=== PATIENT | male | born 1990 | race Caucasian/White ===

== ENCOUNTER 2022-01-08 12:11 | Outpatient (CLI) | payer MEDICAID | END 2022-01-08 12:12 | disposition critical access hospital (66) | LOC: EMS 12:11 | DX: R41.82 Altered mental status, unspecified (principal); R46.4 Slowness and poor responsiveness; R26.2 Difficulty in walking, not elsewhere classified | CPT/HCPCS: A0425; A0429; A0999 ==

== ENCOUNTER 2022-01-08 12:32 | Emergency (ER) | payer MEDICAID ==
[2022-01-08] MEDS ORDERED: NALOXONE HCL NASAL SPRAY KIT NAS STA (12:39)
[2022-01-08] MEDS ORDERED: NALOXONE 0.4 MG/ML VIAL IVP STA (12:39)
[2022-01-08 12:42] VITALS: BP 143/91
[2022-01-08] MEDS ORDERED: SODIUM CHLORIDE 0.9% 1,000 ML IV STA (12:43)
--- NOTE | 2022-01-08 12:44 | ED Physician Documentation ---
History of Present Illness - Stated complaint Stated Complaint: ALOC - Additonal information Additional information: 31-year-old male is brought to the emergency department via EMS for evaluation of altered mental status and somnolence. He was walking towards the [facility] in [place]. Staff there noted that he was having difficulty walking. He would often pause to sleep. Because of the altered mental status and significant somnolence EMS was summoned. For EMS he was cooperative but confused. He admitted to methamphetamine use last night. On arrival to the emergency department here patient is awake, he is able to correctly state his name and date of only. He cannot answer location or history questions. He has no obvious focal deficits though his left eye prefers to remain closed. Pupils 3 mm bilaterally; briskly reactive. Unknown history of trauma. He was normotensive and without tachycardia for EMS. His blood glucose was normal. Due to altered mentation review of systems is unable to be obtained history as per EMS Review of Systems Unable to obtain: AMS PD PAST MEDICAL HISTORY - Allergies Allergies/Adverse Reactions: Allergies Allergy/AdvReac Type Severity Reaction Status Date / Time Unable to Assess Allergy Verified 01/08/22 12:38 PD ED PE EXPANDED - General General: Disheveled, poorly kept (Very poor hygiene, clothing is soiled and wet; no obvious trauma otherwise), Lethargic - HEENT HEENT: PERRL, Other (No obvious trauma. EOMIs appear intact though he will not follow on command. The left eye prefers to stay shut. The patient can open it) - Eyes Eyes: PERRL, Left eye (stays closed) - Neck Neck: Supple w/out meningeal sx, No tenderness - Cardiac Cardiac: Regular Rate, Radial strong equal, Pedal strong equal, Cap refill < 2 sec. No: Murmur Present - Respiratory Respiratory: Clear to ausultation chantelle. No: Distress, Labored - Abdomen Abdomen: Normal Bowel sounds. No: Tender to palpation - Derm Derm: Normal color, Warm and dry - Extremities Extremities: Normal. No: Deformity, Tenderness - Neuro Neuro: Confused, Disoriented, Lethargic, CNII-XII intact, Other (Patient will follow commands bilateral upper extremities differentiates between 2 and 3 fingers. Easily gets the thumb up though weak motor movements) - GCS Eye Opening: Spontaneous Motor: Obeys Commands Verbal: Inappropriate Total: 13 Results - Vitals Vitals: Vital Signs - 24 hr 01/08/22 01/08/22 12:38 12:42 Temperature 36.6 C 36.6 C Heart Rate 76 76 Respiratory 14 14 Rate Blood Pressure 143/91 H 143/91 H O2 Saturation 97 97 Oxygen O2 Source Room air - Labs Labs: Laboratory Tests 01/08/22 01/08/22 01/08/22 13:15 13:15 13:41 WBC 14.8 H RBC 6.12 H Hgb 18.4 H Hct 55.7 H MCV 91.0 MCH 30.1 MCHC 33.0 RDW 13.3 Plt Count 366 MPV 9.7 Neut # (Auto) 12.6 H Lymph # (Auto) 0.8 L [place] # (Auto) 1.3 H Eos # (Auto) 0.0 Baso # (Auto) 0.1 Absolute Nucleated RBC 0.00 Nucleated RBC % 0.0 INR (Fingerstick) 1.1 Sodium 145 Potassium 4.5 Chloride 100 L Carbon Dioxide 30 Anion Gap 15.0 H BUN 38 H Creatinine 1.2 Estimated GFR (MDRD) 71 L Glucose 115 H Calcium 10.2 Total Bilirubin 1.8 H AST 28 ALT 55 Alkaline Phosphatase 85 Total Protein 9.4 H Albumin 4.6 Globulin 4.8 H Albumin/Globulin Ratio 1.0 Lipase 45 Ethyl Alcohol < 5.0 - Rads (name of study) CT head Radiology: Final report received (Very large hematoma or contusion involving the anterior frontal lobes bilaterally with some subarachnoid hemorrhage and probable minimal intraventricular hemorrhage. Also hemorrhage in the rostrum of the corpus callosum with blood layering along the posterior aspect of the falx) PD MEDICAL DECISION MAKING - ED course Complexity details: reviewed results, re-evaluated patient, considered differential, d/w patient, d/w senior research consultant ([facility], [place] ED attending [facility]) ED course: 31-year-old male was brought to the emergency department via EMS for evaluation of altered mental status. Reportedly was walking towards a local homeless group home when he was found to have difficulty walking and increased somnolence. He was normotensive for EMS. No hypoglycemia. He appears homeless disheveled and with poor hygiene but no other external signs of trauma. He had admitted to methamphetamine use. On arrival to the emergency department he is able to follow commands but is acutely confused with some inappropriate words oriented to person only. He prefers to keep his left eyes shut but pupils are briskly reactive bilaterally his eye movements appear intact. He does follow commands bilateral upper extremities. Subsequent CT imaging revealed bilateral intraparenchymal hemorrhages with's small associated intraventricular hemorrhage. This patient was initially given a dose of Narcan on presentation for the somnolence though it has not affected his mentation. 13[address] given the findings on CT scan we have pushed imaging to [facility] and initiated the process for emergent transfer. 1345: At this time screening labs are most significant for leukocytosis. He also appears moderately dehydrated with an elevated BUN and mildly elevated creatinine. He is however normotensive with a systolic blood pressure of 141. Heart rate is in the 70s. I have instituted 1 L of IV fluids. 1350: I have spoken with Dr. Cherry ED attending at [facility] who agrees to accept the patient in transfer. COVID screen is pending. Patient will be flown via [facility]. Recommendation is to keep his systolic blood pressure under 140 with either labetalol or nicardipine. Appropriate [employer] paperwork has been completed. Departure - Departure Disposition: 02 Transfer Acute Care Hosp Clinical Impression: Intraparenchymal hemorrhage of brain Altered mental status Qualifiers: Altered mental status type: coma Coma depth: Yareli coma 13-15 Coma timing: in the field (EMT or ambulance) Qualified Code(s): R40.2411 - Yareli coma scale score 13-15, in the field [EMT or ambulance] Condition: Serious
[2022-01-08 13:19] LABS: BASOPHILS # (AUTO) 0.1 10^3/uL (0.0-0.1); BASOPHILS % (AUTO) 0.5 %; HCT - HEMATOCRIT 55.7 % (42.0-52.0); HGB - HEMOGLOBIN 18.4 g/dL (14.0-18.0); LYMPHOCYTES # (AUTO) 0.8 10^3/uL (1.5-3.5); LYMPHOCYTES % (AUTO) 5.1 %; MEAN CORPUSCULAR HEMOGLOBIN 30.1 pg (27.0-31.0); MEAN PLATELET VOLUME 9.7 fL (7.4-11.4); MONOCYTES # (AUTO) 1.3 10^3/uL (0.0-1.0); MONOCYTES % (AUTO) 8.6 %; NEUTROPHILS # (AUTO) 12.6 10^3/uL (1.5-6.6); NEUTROPHILS % (AUTO) 85.4 %; PLT - PLATELET COUNT 366 10^3/uL (130-450); RED BLOOD COUNT 6.12 10^6/uL (4.70-6.10); RED CELL DISTRIBUTION WIDTH 13.3 % (12.0-15.0); WHITE BLOOD COUNT 14.8 x10^3/uL (4.8-10.8)
[2022-01-08 13:32] LABS: ALBUMIN 4.6 g/dL (3.2-5.5); ALKALINE PHOSPHATASE 85 IU/L (42-121); ALT ALANINE AMINOTRANSFERASE 55 IU/L (10-60); AST ASPARTATE AMINOTRANSFERASE 28 IU/L (10-42); BILIRUBIN,TOTAL 1.8 mg/dL (0.2-1.0); BUN - BLOOD UREA NITROGEN 38 mg/dL (6-20); CALCIUM 10.2 mg/dL (8.5-10.3); CARBON DIOXIDE - CO2 30 mmol/L (21-32); CHLORIDE 100 mmol/L (101-111); CREATININE 1.2 mg/dL (0.6-1.2); ETOH - ETHANOL < 5.0 mg/dL; GFR - MDRD 71 (>89); GLUCOSE 115 mg/dL (70-100); LIPASE 45 U/L (22-51); POTASSIUM 4.5 mmol/L (3.5-5.0); SODIUM 145 mmol/L (135-145); TOTAL PROTEIN 9.4 g/dL (6.7-8.2)
--- NOTE | 2022-01-08 13:39 | CT Report ---
PROCEDURE: HEAD WO INDICATIONS: somnolence; meth use TECHNIQUE: Noncontrast 4.5 mm thick angled axial sections acquired from the foramen magnum to the vertex. For r adiation dose reduction, the following was used: automated exposure control, adjustment of mA and/or kV according to patient size. COMPARISON: None. FINDINGS: Image quality: Excellent. CSF spaces: There is a small amount of hemorrhage which extends from the bilateral frontal regions to probably extend anteriorly into the ventricular system. There is also a small amount of subarachnoid hemorrhage. There is blood layering along the posterior aspect of the falx to the right of midline. Brain: Very large bilateral frontal cerebral contusion/hematoma, with overall measurements of approxi mately 5.1 x 6.7 x 5.2 cm. This represents a combination of hemorrhagic and nonhemorrhagic contusion/ hematoma. There appears to be hemorrhage involving the rostrum of the corpus callosum. Skull and face: Calvarium and visualized facial bones are intact, without suspicious lesions. Sinuses: Visualized sinuses and mastoids are clear. IMPRESSION: Very large hematoma or contusion involving the anterior frontal lobes bilaterally with s ome subarachnoid hemorrhage and probable minimal intraventricular hemorrhage. There is also hemorrhag e involving the rostrum of the corpus callosum as well as blood layering along the posterior aspect o f the falx. Above discussed with Jackie Matthews at the time of dictation on 01/08/2022 at 1333 hours. Reviewed by: Reinier Lima MD on 01/08/2022 1:37 PM PDT Approved by: Reinier Lima MD on 01/08/2022 1:37 PM PDT Station ID: [id number]
[2022-01-08 13:59] LABS: MUDS CUTOFF CONCENTRATIONS CUTOFF CONC BELOW:
[2022-01-08] MEDS ORDERED: LABETALOL VIAL 200 MG in SODIUM CHLORIDE 0.9% 160 ML IV STA (14:07)
[2022-01-08 14:22] LABS: AMPHETAMINE SCREEN,URINE POSITIVE (NEGATIVE); BARBITURATE SCREEN,UR NEGATIVE (NEGATIVE); BENZODIAZEPINES SCREEN, URINE NEGATIVE (NEGATIVE); COCAINE SCREEN URINE NEGATIVE (NEGATIVE); METHADONE SCREEN, URINE NEGATIVE (NEGATIVE); METHAMPHETAMINES SCREEN, URINE POSITIVE (NEGATIVE); OPIATE SCREEN, URINE NEGATIVE (NEGATIVE); OXYCODONE SCREEN, URINE NEGATIVE (NEGATIVE); PROPOXYPHENE SCREEN, URINE NEGATIVE (NEGATIVE); THC CANNABINOID SCREEN, URINE NEGATIVE (NEGATIVE); TRICYCLIC ANTIDEPRESSANT,URINE NEGATIVE (NEGATIVE)
== END 2022-01-08 14:27 | disposition short-term general hospital (02) ==
LOC: ED 12:32
DX: I61.9 Nontraumatic intracerebral hemorrhage, unspecified (principal); R40.2411 Glasgow coma scale score 13-15, in the field [EMT or ambulance]; Z20.822 Contact with and (suspected) exposure to COVID-19
CPT/HCPCS: 36415; 80053; 80306; 80320; 83690; 85025; 85610; 96361; 96374; 99285